=== PATIENT | female | born 1960 | race Caucasian/White ===

== ENCOUNTER → 2016-08-18 | Day surgery (SDC) | payer OTHER ==
[~2016-08-18] MED LIST: ADVAIR 100-501 EACH IH; ALBUTEROL17 G1 IH; ALBUTEROL17 GM INH; CARAFATE PO; CIPRO250 MG PO; ECOTRIN325 MG PO; FLEXERIL10 M1 PO; GABAPENTIN300 M2 PO; GLUCOPHAGE500 MG PO; HYDROCODON-ACE1 EAC4 PO; HYDROCODON-ACE1 EAC7 PO; LORTAB 10-3251 EACH PO; NEURONTIN300 MG PO; OXYGEN; PHENERGAN PO; PRINIVIL10 MG PO; PROVENTIL0.83 MG/ML NEB; PYRIDIUM100 MG PO; UNKNOWN BP MED; VALIUM10 M1 PO; XANAX2 MG PO; ZYRTEC PO; ZYRTEC10 M2 PO
== END | disposition home or self-care (01) ==
LOC: CCSC 09:19
DX: M47.818 Spondylosis without myelopathy or radiculopathy, sacral and sacrococcygeal region (principal); G90.50 Complex regional pain syndrome I, unspecified; M19.071 Primary osteoarthritis, right ankle and foot; M17.0 Bilateral primary osteoarthritis of knee; J45.909 Unspecified asthma, uncomplicated; J44.9 Chronic obstructive pulmonary disease, unspecified; F17.200 Nicotine dependence, unspecified, uncomplicated; Z53.9 Procedure and treatment not carried out, unspecified reason; Z79.891 Long term (current) use of opiate analgesic; Z79.899 Other long term (current) drug therapy; Z88.0 Allergy status to penicillin; Z90.710 Acquired absence of both cervix and uterus; Z90.721 Acquired absence of ovaries, unilateral; Z98.890 Other specified postprocedural states
CPT/HCPCS: J1040; J2250